=== PATIENT | male | born 2000 | race Caucasian/White ===

== ENCOUNTER 2019-07-26 18:00 | Emergency (ER) | payer BC, OTHER ==
[~2019-07-26] VITALS: Ht 195.6 cm; Wt 81.8 kg
[2019-07-26 18:16] VITALS: TEMP 98.7
[2019-07-26] MEDS ORDERED: ZOFRAN ODT4 MG PO (20:00)
[2019-07-26 20:41] VITALS: BP 144/66; PULSE 80
== END 2019-07-26 20:41 | disposition home or self-care (01) ==
LOC: COL.ER 18:00
DX: S06.0X0A Concussion without loss of consciousness, initial encounter (principal); W50.0XXA Accidental hit or strike by another person, initial encounter; Y92.219 Unspecified school as the place of occurrence of the external cause; Y93.67 Activity, basketball

== ENCOUNTER 2023-09-30 16:09 | Emergency (ER) | payer SELFPAY ==
[~2023-09-30] VITALS: Wt 100.0 kg
[~2023-09-30 16:09] MED LIST: ZOFRAN ODT4 MG PO
[2023-09-30 16:12] VITALS: TEMP 97.8
[2023-09-30 17:07] VITALS: BP 137/86; PULSE 87
== END 2023-09-30 17:07 | disposition home or self-care (01) ==
LOC: COL.ER 16:09
DX: S61.211A Laceration without foreign body of left index finger without damage to nail, initial encounter (principal); Z23 Encounter for immunization; W25.XXXA Contact with sharp glass, initial encounter